=== PATIENT | male | born 1980 | race Hispanic/Latino ===

== ENCOUNTER 2017-12-18 01:25 | Emergency (ER) | payer SELFPAY ==
[2017-12-18 02:36] LABS: Absolute Lymphocytes (CBC) 2.7 K/uL (0.7-4.9); Absolute Monocytes 0.8 K/uL (0.1-1.3); Absolute Neutrophil 4.6 K/uL (1.8-8.0); Basophils % 0.8 % (0-1.3); Eosinophils % 6.9 % (0-4.4); Hematocrit 49.5 % (39.6-49.0); Lymphocytes % 30.6 % (15.3-44.8); MCH 30.7 pg (27.0-35.0); MCV 92.1 fL (80-100); MPV 10.7 fL (7.6-11.3); Monocytes % 8.8 % (3.3-12.3); RBC Red Blood Cell Count 5.37 M/uL (4.33-5.43)
[2017-12-18 02:44] LABS: Bicarbonate 25 mEq/L (21-31); Glucose Level 97 mg/dL (65-120); Sodium Level 137 mEq/L (135-145)
[2017-12-18 02:45] LABS: BUN Blood Urea Nitrogen 13 mg/dL (6-20); Barbiturates NEGATIVE; Benzodiazepines NEGATIVE; Cocaine NEGATIVE; METHAMPHETAM NEGATIVE; Opiates NEGATIVE; Phencyclidine NEGATIVE; THC Cannibis NEGATIVE
[2017-12-18 03:06] LABS: Urine Blood NEGATIVE (NEG); Urine Glucose NEGATIVE (NEG); Urine Protein NEGATIVE (NEG)
--- NOTE | 2017-12-18 03:42 | ER ---
Nurse's Notes [facility] Name: Ozzie Francois Age: 37 yrs Sex: Male : 1980 Arrival Date: 12/18/2017 Time: 01:30 Bed 16 Private MD: Diagnosis: Numbness left upper extremity Presentation: 12/18 01:40 Presenting complaint: Patient states: that yesterday at 0900 he started to have left fc arm pain and numbness after he had be laying on it. When he got up it felt like "ants" running through his arm. Then this am at 0115 his bp was 160/95 so he wanted to be checked out. Transition of care: patient was not received from another setting of care. Onset of symptoms was December 17, 2017 at 09:00. Initial Sepsis Screen: Does the patient meet any 2 criteria? No. Patient's initial sepsis screen is negative. Does the patient have a suspected source of infection? No. Patient's initial sepsis screen is negative. Care prior to arrival: None. 01:40 Method Of Arrival: Ambulatory 01:40 Acuity: DEV 3 Historical: - Allergies: 01:43 No Known Allergies; fc - Home Meds: 01:43 metoprolol tartrate 100 mg Oral tab 1 tab once daily [Active]; fc - PMHx: 01:43 Hypertension; fc - PSHx: 01:43 None; fc - Immunization history:: Last tetanus immunization: up to date. - Social history:: Smoking status: Patient/guardian denies using tobacco, Patient uses alcohol, claims drinking about a 6 pack/day. Patient/guardian denies using street drugs. Screenin:44 Abuse screen: Denies threats or abuse. Nutritional screening: No deficits noted. fc Tuberculosis screening: No symptoms or risk factors identified. Fall Risk None identified. Assessment: 01:50 General: Appears in no apparent distress. comfortable, Behavior is calm, cooperative. mg2 Pain: Denies pain. Neuro: Level of Consciousness is awake, alert, obeys commands, Oriented to person, place, time, situation. Cardiovascular: Capillary refill < 3 seconds Patient's skin is warm and dry. Respiratory: Airway is patent Respiratory effort is even, unlabored, Respiratory pattern is regular, symmetrical. GI: No signs and/or symptoms were reported involving the gastrointestinal system. : No signs and/or symptoms were reported regarding the genitourinary system. EENT: No signs and/or symptoms were reported regarding the EENT system. Derm: Skin is intact, Skin is pink, warm \\T\\ dry. normal. Musculoskeletal: No signs and/or symptoms reported regarding the musculoskeletal system. Vital Signs: 01:40 BP 149 / 91; Pulse 61; Resp 18; Temp 98.4(O); Pulse Ox 96% on R/A; Weight 108.86 kg fc (R); Height 5 ft. 4 in. (162.56 cm) (R); Pain 4/10; 02:39 BP 128 / 60; Pulse 65; Resp 18; Pulse Ox 100% ; Pain 0/10; mg2 03:25 BP 125 / 61; Pulse 66; Resp 16; Pulse Ox 97% on R/A; mg2 03:40 BP 114 / 61; Pulse 62; Resp 18; Pulse Ox 100% on R/A; Pain 0/10; mg2 01:40 Body Mass Index 41.20 (108.86 kg, 162.56 cm) ED Course: 01:30 Patient arrived in ED. al2 01:40 Arm band placed on Patient placed in an exam room, on a stretcher. fc 01:42 Triage completed. fc 01:44 Patient has correct armband on for positive identification. Bed in low position. Call light in reach. 01:44 No provider procedures requiring assistance completed. fc 01:47 Bj Hartley, RN is Primary Nurse. mg2 02:04 Kenn Torres MD is Attending Physician. pkl 02:28 X-ray completed. Portable x-ray completed in exam room. Patient tolerated procedure kw well. 02:31 XRAY CXR (1 view) In Process Unspecified. EDMS 02:38 Initial lab(s) drawn, by ky, sent to lab. EKG done, by ED staff, reviewed by Kenn fontenot MD. Inserted saline lock: 20 gauge in right antecubital area, using aseptic technique. Blood collected. 03:48 IV discontinued, intact, bleeding controlled, No redness/swelling at site. Pressure mg2 dressing applied. Administered Medications: No medications were administered Outcome: 03:41 Discharge ordered by . pkl 03:48 Discharged to home ambulatory. mg2 03:48 Condition: stable 03:48 Discharge instructions given to patient, Instructed on discharge instructions, follow up and referral plans. Demonstrated understanding of instructions, follow-up care. 03:49 Patient left the ED. mg2 Signatures: Dispatcher [employer] EDKenn Courtney MD MD pkl Chretien, Felicia RN RN Mae Shannon Angelica al2 Gardose, Michele, RN RN mg2
--- NOTE | 2017-12-18 03:42 | EDPHYS ---
Physician Documentation [facility] Name: Ozzie Francois Age: 37 yrs Sex: Male : 1980 Arrival Date: 12/18/2017 Time: 01:30 Bed 16 Private MD: ED Physician Kenn Torres HPI: 12/18 02:08 This 37 yrs old Male presents to ER via Ambulatory with complaints of High pkl Blood Pressure, Arm Pain. 02:08 Onset: The symptoms/episode began/occurred today. Associated signs and symptoms: pkl Pertinent positives: numbness left arm. Historical: - Allergies: : No Known Allergies; fc - Home Meds: : metoprolol tartrate 100 mg Oral tab 1 tab once daily [Active]; fc - PMHx: : Hypertension; fc - PSHx: :43 None; fc - Immunization history:: Last tetanus immunization: up to date. - Social history:: Smoking status: Patient/guardian denies using tobacco, Patient uses alcohol, claims drinking about a 6 pack/day. Patient/guardian denies using street drugs. ROS: 02:08 Eyes: Negative for injury, pain, redness, and discharge, ENT: Negative for injury, pkl pain, and discharge, Neck: Negative for injury, pain, and swelling, Cardiovascular: Negative for chest pain, palpitations, and edema, Respiratory: Negative for shortness of breath, cough, wheezing, and pleuritic chest pain, Abdomen/GI: Negative for abdominal pain, nausea, vomiting, diarrhea, and constipation, Back: Negative for injury and pain, : Negative for injury, bleeding, discharge, and swelling. 02:08 MS/extremity: Positive for numbness left arm. 02:08 Skin: Negative for rash. 02:08 Neuro: Negative for altered mental status. Exam: 02:08 Head/Face: Normocephalic, atraumatic. Eyes: Pupils equal round and reactive to light, pkl extra-ocular motions intact. Lids and lashes normal. Conjunctiva and sclera are non-icteric and not injected. Cornea within normal limits. Periorbital areas with no swelling, redness, or edema. ENT: Nares patent. No nasal discharge, no septal abnormalities noted. Tympanic membranes are normal and external auditory canals are clear. Oropharynx with no redness, swelling, or masses, exudates, or evidence of obstruction, uvula midline. Mucous membranes moist. Neck: Trachea midline, no thyromegaly or masses palpated, and no cervical lymphadenopathy. Supple, full range of motion without nuchal rigidity, or vertebral point tenderness. No Meningismus. Chest/axilla: Normal chest wall appearance and motion. Nontender with no deformity. No lesions are appreciated. Cardiovascular: Regular rate and rhythm with a normal S1 and S2. No gallops, murmurs, or rubs. Normal PMI, no JVD. No pulse deficits. Respiratory: Lungs have equal breath sounds bilaterally, clear to auscultation and percussion. No rales, rhonchi or wheezes noted. No increased work of breathing, no retractions or nasal flaring. Abdomen/GI: Soft, non-tender, with normal bowel sounds. No distension or tympany. No guarding or rebound. No evidence of tenderness throughout. Back: No spinal tenderness. No costovertebral tenderness. Full range of motion. Skin: Warm, dry with normal turgor. Normal color with no rashes, no lesions, and no evidence of cellulitis. MS/ Extremity: Pulses equal, no cyanosis. Neurovascular intact. Full, normal range of motion. Neuro: Awake and alert, GCS 15, oriented to person, place, time, and situation. Cranial nerves II-XII grossly intact. Motor strength 5/5 in all extremities. Sensory grossly intact. Cerebellar exam normal. Normal gait. Vital Signs: 01:40 BP 149 / 91; Pulse 61; Resp 18; Temp 98.4(O); Pulse Ox 96% on R/A; Weight 108.86 kg fc (R); Height 5 ft. 4 in. (162.56 cm) (R); Pain 4/10; 02:39 BP 128 / 60; Pulse 65; Resp 18; Pulse Ox 100% ; Pain 0/10; mg2 03:25 BP 125 / 61; Pulse 66; Resp 16; Pulse Ox 97% on R/A; mg2 03:40 BP 114 / 61; Pulse 62; Resp 18; Pulse Ox 100% on R/A; Pain 0/10; mg2 01:40 Body Mass Index 41.20 (108.86 kg, 162.56 cm) MDM: 02:04 Patient medically screened. pkl 03:40 Data reviewed: vital signs, nurses notes, lab test result(s), EKG, radiologic studies, pkl plain films. 12/18 02:12 Order name: CBC with Diff; Complete Time: 03:37 pkl 12/18 02:12 Order name: Chem 7; Complete Time: 03:37 pkl 12/18 02:12 Order name: Troponin (emerg Dept Use Only); Complete Time: 03:37 pkl 12/18 02:12 Order name: XRAY CXR (1 view) pkl 12/18 02:12 Order name: UDS; Complete Time: 03:37 pkl 12/18 02:31 Order name: Urine Dipstick--Ancillary (enter results); Complete Time: 03:37 mw2 12/18 02:12 Order name: EKG; Complete Time: 02:13 pkl Administered Medications: No medications were administered Disposition: 12/18/17 03:41 Discharged to Home. Impression: Numbness left upper extremity. - Condition is Stable. - Medication Reconciliation Form, Thank You Letter, Antibiotic Education, Prescription Opioid Use form. - Work release form (12/18/17 18:11). bd - Follow up: Private Physician; When: 2 - 3 days; Reason: Re-evaluation by your physician. - Problem is new. - Symptoms have improved. Signatures: Dispatcher [employer] EDMS Kenn Torres MD MD pkl Leigha Desouza RN RN Bj Hartley RN RN Octavia Fontaine Corrections: (The following items were deleted from the chart) 03:49 03:41 12/18/2017 03:41 Discharged to Home. Impression: Numbness left upper extremity. mg2 Condition is Stable. Forms are Medication Reconciliation Form, Thank You Letter, Antibiotic Education, Prescription Opioid Use. Follow up: Private Physician; When: 2 - 3 days; Reason: Re-evaluation by your physician. Problem is new. Symptoms have improved. pkl
--- NOTE | 2017-12-18 07:57 | EKG ---
Test Date: 2017-12-18 Test Time: 02:34:40 [employer] And Repairs Preparer: MEASUREMENT RESULTS: Intervals: Rate: 63 NE: 160 QRSD: 86 QT: 420 QTc: 429 [place]: P: 38 NE: 160 QRS: 5 T: 11 INTERPRETIVE STATEMENTS: Normal sinus rhythm Normal ECG No previous ECG available for comparison Electronically Signed On 12-18-17 07:57:32 CDT by Jacobo Goodwin
--- NOTE | 2017-12-20 11:08 | RAD REPORT ---
EXAM DESCRIPTION: RAD - Chest Single View - 12/18/2017 2:30 am CLINICAL HISTORY: Chest pain. COMPARISON: None. FINDINGS: Portable technique limits examination quality. The lungs are grossly clear. The heart is normal in size. No displaced fractures. IMPRESSION: No acute intrathoracic process suspected.
== END 2017-12-18 03:49 | disposition home or self-care (01) ==
LOC: ER 01:25
DX: R20.0 Anesthesia of skin (principal); I10 Essential (primary) hypertension
CPT/HCPCS: 36415; 71045; 80048; 80307; 81003; 84484; 85025; 93005; 99284